=== PATIENT | female | born 1960 | race Caucasian/White ===

== ENCOUNTER → 2018-10-22 | Outpatient (CLI) | payer BC ==
[2018-10-22 16:02] LABS: URINE APPEARANCE HAZY; URINE COLOR YELLOW
[2018-10-22 16:03] LABS: URINE PROTEIN(semi-quant) TRACE mg/dL (NEGATIVE)
[2018-10-22 16:04] LABS: URINE BILIRUBIN NEGATIVE (NEGATIVE); URINE BLOOD NEGATIVE (NEGATIVE); URINE KETONE NEGATIVE (NEGATIVE); URINE LEUKOCYTE ESTERASE TRACE (NEGATIVE); URINE NITRATE NEGATIVE (NEGATIVE); URINE UROBILINOGEN NORMAL (NORMAL)
== END ==
LOC: LAB 15:08
PROVIDERS: Family Medicine
DX: E11.9 Type 2 diabetes mellitus without complications (principal); R82.90 Unspecified abnormal findings in urine; R20.2 Paresthesia of skin; R20.0 Anesthesia of skin

== ENCOUNTER → 2018-11-02 | Outpatient (CLI) | payer BC ==
[2018-11-02 23:57] LABS: URINE APPEARANCE HAZY; URINE BILIRUBIN NEGATIVE (NEGATIVE); URINE BLOOD NEGATIVE (NEGATIVE); URINE COLOR YELLOW; URINE KETONE NEGATIVE (NEGATIVE); URINE LEUKOCYTE ESTERASE TRACE (NEGATIVE); URINE NITRATE NEGATIVE (NEGATIVE); URINE PROTEIN(semi-quant) TRACE mg/dL (NEGATIVE); URINE UROBILINOGEN NORMAL (NORMAL)
== END ==
LOC: LAB 17:19
PROVIDERS: Family Medicine
DX: N39.0 Urinary tract infection, site not specified (principal); B99.9 Unspecified infectious disease

== ENCOUNTER → 2019-01-18 | Outpatient (CLI) | payer BC | LOC: LAB 07:12 | DX: N39.0 Urinary tract infection, site not specified (principal); G56.03 Carpal tunnel syndrome, bilateral upper limbs; E11.9 Type 2 diabetes mellitus without complications ==

== ENCOUNTER → 2019-03-09 | Outpatient (CLI) | payer BC | LOC: RAD 07:52 | DX: M19.071 Primary osteoarthritis, right ankle and foot (principal) ==

== ENCOUNTER → 2019-04-21 | Outpatient (CLI) | payer BC | LOC: LAB 12:24 | DX: E11.9 Type 2 diabetes mellitus without complications (principal); G56.03 Carpal tunnel syndrome, bilateral upper limbs; M25.562 Pain in left knee; K20.9 Esophagitis, unspecified ==

== ENCOUNTER → 2019-06-17 | Outpatient (CLI) | payer BC ==
[~2019-06-17] VITALS: Ht 154.9 cm; Wt 76.8 kg
[~2019-06-17] MED LIST: GLUCOPHAGE PO; LANTUS SOLOS100 U/ML SQ; PRILOSEC OTC20 MG PO
[2019-06-17 10:47] LABS: POTASSIUM 4.1 mmol/L (3.5-5.1)
[2019-06-17 10:48] LABS: CALCIUM 9.6 mg/dL (8.3-10.5)
[2019-06-17 11:09] VITALS: BP 135/88
== END ==
LOC: AMSURD 10:31
PROVIDERS: Family Medicine
DX: E11.9 Type 2 diabetes mellitus without complications (principal); I20.8 Other forms of angina pectoris; K20.9 Esophagitis, unspecified; R22.9 Localized swelling, mass and lump, unspecified

== ENCOUNTER 2019-10-04 02:26 | Emergency (ER) | payer BC ==
[~2019-10-04] VITALS: Ht 154.9 cm; Wt 73.7 kg
[2019-10-04 03:42] LABS: HEMATOCRIT 43.1 % (37.0-47.0); HEMOGLOBIN 14.7 g/dL (12.5-16.0); MEAN CELL VOLUME 83 fl (78-100); MEAN CORPUSCULAR HEMOGLOBIN 28 pg (27-31); MEAN CORPUSCULAR HGB CONC 34 g/dL (33-37); MEAN PLATELET VOLUME 11.3 fl (7.4-10.4); PLATELET COUNT 173 K/mm3 (130-400); RED BLOOD COUNT 5.19 M/mm3 (4.10-5.30); RED CELL DISTRIBUTION WIDTH 13.2 % (11.5-14.5); WHITE BLOOD COUNT 8.6 K/mm3 (4.8-10.8)
[2019-10-04 03:48] LABS: URINE APPEARANCE CLOUDY; URINE BILIRUBIN NEGATIVE (NEGATIVE); URINE BLOOD NEGATIVE (NEGATIVE); URINE COLOR YELLOW; URINE KETONE NEGATIVE (NEGATIVE); URINE LEUKOCYTE ESTERASE 2+ (NEGATIVE); URINE NITRATE POSITIVE (NEGATIVE); URINE PROTEIN(semi-quant) NEGATIVE (NEGATIVE); URINE UROBILINOGEN NORMAL (NORMAL); URINE WBC >50 /hpf (0-3)
[2019-10-04 03:51] LABS: BAND 1 % (0-10); LYMPHOCYTE 11 % (20-51); MONOCYTE 2 % (3-10); NEUTROPHILS 86 % (42-75)
[2019-10-04 03:52] LABS: ALBUMIN 3.9 g/dL (3.5-5.0); POTASSIUM 3.6 mmol/L (3.5-5.1)
[2019-10-04 03:54] LABS: CALCIUM 8.6 mg/dL (8.3-10.5)
[2019-10-04 03:55] LABS: TOTAL PROTEIN 6.9 g/dL (6.4-8.3)
[2019-10-04 03:56] LABS: TOTAL BILIRUBIN 1.2 mg/dL (0.2-1.2)
[2019-10-04] MEDS ORDERED: ZOFRAN4 M2 PO (08:24)
[2019-10-04] MEDS ORDERED: MACROBID 100 M100 MG PO (08:24)
[2019-10-04 08:29] VITALS: BP 97/60
== END 2019-10-04 08:27 | disposition home or self-care (01) ==
LOC: ED 02:26
PROVIDERS: Nurse Practitioner Primary Care
DX: N30.00 Acute cystitis without hematuria (principal); E11.9 Type 2 diabetes mellitus without complications; K21.9 Gastro-esophageal reflux disease without esophagitis; Z79.4 Long term (current) use of insulin; Z90.49 Acquired absence of other specified parts of digestive tract; Z90.710 Acquired absence of both cervix and uterus; Z88.8 Allergy status to other drugs, medicaments and biological substances
CPT/HCPCS: A4216; C9113; J0696; J1885; J2405; J7030

== ENCOUNTER → 2019-10-18 | Day surgery (SDC) | payer BC ==
[2019-10-04 08:29] VITALS: BP 97/60
[~2019-10-18] MED LIST changes: +MACROBID 100 M100 MG PO; +ZOFRAN4 M2 PO
== END | disposition home or self-care (01) ==
LOC: MSO 07:40
DX: K21.0 Gastro-esophageal reflux disease with esophagitis (principal); K44.9 Diaphragmatic hernia without obstruction or gangrene; K25.9 Gastric ulcer, unspecified as acute or chronic, without hemorrhage or perforation; Z87.891 Personal history of nicotine dependence; J45.909 Unspecified asthma, uncomplicated; E10.9 Type 1 diabetes mellitus without complications; Z79.4 Long term (current) use of insulin; Z79.899 Other long term (current) drug therapy; Z88.5 Allergy status to narcotic agent
CPT/HCPCS: 00731; J2704; J7030

== ENCOUNTER → 2020-06-26 | Outpatient (CLI) | payer BC | LOC: LAB 09:35 | DX: R50.9 Fever, unspecified (principal); R52 Pain, unspecified; R11.0 Nausea; R19.7 Diarrhea, unspecified; R53.83 Other fatigue; Z20.828 Contact with and (suspected) exposure to other viral communicable diseases ==

== ENCOUNTER → 2020-06-28 | Outpatient (CLI) | payer BC ==
[2020-06-28 16:57] LABS: URINE APPEARANCE CLOUDY; URINE BILIRUBIN NEGATIVE (NEGATIVE); URINE BLOOD NEGATIVE (NEGATIVE); URINE COLOR YELLOW; URINE GLUCOSE NEGATIVE (NEGATIVE); URINE KETONE NEGATIVE (NEGATIVE); URINE LEUKOCYTE ESTERASE 2+ (NEGATIVE); URINE MUCUS PRESENT (NOT PRESENT); URINE NITRATE NEGATIVE (NEGATIVE); URINE PROTEIN(semi-quant) NEGATIVE (NEGATIVE); URINE UROBILINOGEN NORMAL (NORMAL)
== END ==
LOC: LAB 16:06
PROVIDERS: Family Medicine
DX: E11.9 Type 2 diabetes mellitus without complications (principal); R35.0 Frequency of micturition

== ENCOUNTER 2020-08-05 14:03 | Emergency (ER) | payer OTHER, BC ==
[~2020-08-05] VITALS: Ht 154.9 cm; Wt 75.0 kg
[2020-08-05] MEDS ORDERED: JANUVIA50 MG PO (15:02)
[2020-08-05 15:54] LABS: EOS # 0.1 (0.04-0.40); HEMATOCRIT 41.4 % (37.0-47.0); HEMOGLOBIN 13.8 g/dL (12.5-16.0); LYMPH# 1.9 (1.50-4.00); MEAN CELL VOLUME 85 fl (78-100); MEAN CORPUSCULAR HEMOGLOBIN 28 pg (27-31); MEAN CORPUSCULAR HGB CONC 33 g/dL (33-37); MEAN PLATELET VOLUME 10.9 fl (7.4-10.4); MONO # 0.8 (0.20-0.80); PLATELET COUNT 213 K/mm3 (130-400); RED CELL DISTRIBUTION WIDTH 13.5 % (11.5-14.5); WHITE BLOOD COUNT 12.6 K/mm3 (4.8-10.8)
[2020-08-05 15:57] LABS: NEU # 9.8 (1.40-6.50)
[2020-08-05 16:01] LABS: ALBUMIN 4.1 g/dL (3.5-5.0); POTASSIUM 3.9 mmol/L (3.5-5.1)
[2020-08-05 16:02] LABS: CALCIUM 9.1 mg/dL (8.3-10.5)
[2020-08-05 16:04] LABS: TOTAL PROTEIN 7.7 g/dL (6.4-8.3)
[2020-08-05 16:05] LABS: TOTAL BILIRUBIN 0.5 mg/dL (0.2-1.2)
[2020-08-05] MEDS ORDERED: ZOFRAN ODT4 MG PO (16:37)
[2020-08-05 16:52] VITALS: BP 127/86
== END 2020-08-05 16:53 | disposition home or self-care (01) ==
LOC: ED 14:03
PROVIDERS: Family Medicine
DX: R11.2 Nausea with vomiting, unspecified (principal); E11.9 Type 2 diabetes mellitus without complications; K21.9 Gastro-esophageal reflux disease without esophagitis; Z90.710 Acquired absence of both cervix and uterus; Z90.49 Acquired absence of other specified parts of digestive tract; Z79.4 Long term (current) use of insulin; V89.2XXA Person injured in unspecified motor-vehicle accident, traffic, initial encounter

== ENCOUNTER → 2020-09-21 | Outpatient (CLI) | payer BC ==
[~2020-09-21] MED LIST changes: +JANUVIA50 MG PO; +ZOFRAN ODT4 MG PO
== END ==
LOC: LAB 09-20 09:58
DX: E11.9 Type 2 diabetes mellitus without complications (principal)

== ENCOUNTER → 2020-12-27 | Outpatient (CLI) | payer BC ==
[2020-12-27 09:16] LABS: ALBUMIN 4.1 g/dL (3.5-5.0)
[2020-12-27 09:19] LABS: TOTAL PROTEIN 7.3 g/dL (6.4-8.3)
[2020-12-27 09:21] LABS: TOTAL BILIRUBIN 0.6 mg/dL (0.2-1.2)
[2020-12-27 09:24] LABS: DIRECT BILIRUBIN 0.3 mg/dL (0.0-0.5)
== END ==
LOC: LAB 08:46
PROVIDERS: Family Medicine
DX: E78.00 Pure hypercholesterolemia, unspecified (principal); E11.9 Type 2 diabetes mellitus without complications

== ENCOUNTER → 2021-03-12 | Outpatient (CLI) | payer BC | LOC: LAB 12:15 | DX: E11.9 Type 2 diabetes mellitus without complications (principal) ==

== ENCOUNTER → 2021-09-26 | Outpatient (CLI) | payer BC | LOC: LAB 14:27 | DX: E11.9 Type 2 diabetes mellitus without complications (principal) ==

== ENCOUNTER → 2021-10-17 | Outpatient (CLI) | payer BC ==
[2021-10-17 15:40] LABS: POTASSIUM 3.8 mmol/L (3.5-5.1)
[2021-10-17 15:41] LABS: CALCIUM 9.5 mg/dL (8.3-10.5)
[2021-10-17 15:42] LABS: TOTAL PROTEIN 7.2 g/dL (6.4-8.3)
[2021-10-17 15:44] LABS: TOTAL BILIRUBIN 0.5 mg/dL (0.2-1.2)
== END ==
LOC: LAB 14:48
PROVIDERS: Family Medicine
DX: E11.9 Type 2 diabetes mellitus without complications (principal)

== ENCOUNTER → 2022-01-23 | Outpatient (CLI) | payer BC | LOC: LAB 14:56 | DX: E11.9 Type 2 diabetes mellitus without complications (principal); K21.9 Gastro-esophageal reflux disease without esophagitis; I10 Essential (primary) hypertension ==

== ENCOUNTER → 2022-02-04 | Outpatient (CLI) | payer BC | LOC: LAB 12:13 | DX: E11.9 Type 2 diabetes mellitus without complications (principal); K21.9 Gastro-esophageal reflux disease without esophagitis; I10 Essential (primary) hypertension ==

== ENCOUNTER → 2022-02-15 | Outpatient (CLI) | payer BC ==
[2022-02-15 09:58] LABS: BASO # 0.03 K/mm3 (0.02-0.10); EOS # 0.19 K/mm3 (0.04-0.40); EOS % 3.8 % (1.0-5.0); HEMATOCRIT 41.9 % (37.0-47.0); LYMPH# 1.69 K/mm3 (1.50-4.00); MEAN CELL VOLUME 86 fl (78-100); MEAN CORPUSCULAR HEMOGLOBIN 29 pg (27-31); MEAN CORPUSCULAR HGB CONC 33 g/dL (33-37); MEAN PLATELET VOLUME 10.2 fl (7.4-10.4); MONO # 0.49 K/mm3 (0.20-0.80); NEU # 2.65 K/mm3 (1.40-6.50); PLATELET COUNT 177 K/mm3 (130-400); RED CELL DISTRIBUTION WIDTH 12.8 % (11.5-14.5); WHITE BLOOD COUNT 5.1 K/mm3 (4.8-10.8)
== END ==
LOC: LAB 09:44
PROVIDERS: Family Medicine
DX: Z12.11 Encounter for screening for malignant neoplasm of colon (principal); E11.9 Type 2 diabetes mellitus without complications; K21.9 Gastro-esophageal reflux disease without esophagitis; K92.1 Melena

== ENCOUNTER → 2024-07-16 | Outpatient (CLI) | payer BC ==
[~2024-07-16] MED LIST changes: +EZETIMIBE10 M1 PO; +LEVEMIR100 U/M1 SQ; +LISINOPRIL10 MG PO; +METFORMIN HYD1000 MG PO; +METOCLOPRAMIDE H5 M1 PO; +PRILOSEC 20MG20 MG PO; +TRULICITY4.5 MG/0.5 SQ
== END ==
LOC: LAB 11:57
DX: E11.9 Type 2 diabetes mellitus without complications (principal)

== ENCOUNTER → 2024-10-22 | Outpatient (CLI) | payer BC ==
[2024-10-22 16:55] LABS: CALCIUM 8.6 mg/dL (8.3-10.5)
[2024-10-22 17:46] LABS: URINE APPEARANCE CLEAR (CLEAR); URINE BILIRUBIN NEGATIVE (NEGATIVE); URINE BLOOD NEGATIVE (NEGATIVE); URINE COLOR YELLOW (YELLOW); URINE GLUCOSE 2+ (NEGATIVE); URINE KETONE NEGATIVE (NEGATIVE); URINE LEUKOCYTE ESTERASE NEGATIVE (NEGATIVE); URINE NITRATE POSITIVE (NEGATIVE); URINE PROTEIN(semi-quant) NEGATIVE (NEGATIVE)
== END ==
LOC: LAB 16:22
PROVIDERS: Family Medicine
DX: I10 Essential (primary) hypertension (principal); E11.9 Type 2 diabetes mellitus without complications; R30.0 Dysuria

== ENCOUNTER → 2025-01-19 | Outpatient (CLI) | payer BC | LOC: LAB 11:47 | DX: E11.9 Type 2 diabetes mellitus without complications (principal) ==